=== PATIENT | female | born 1995 | race Hispanic/Latino ===

== ENCOUNTER 2024-06-05 19:05 | Emergency (ER) | payer SELFPAY ==
[~2024-06-05] VITALS: Ht 149.9 cm; Wt 77.1 kg
[2024-06-05] MEDS: dexaMETHasone SOD PHOSPHATE 4 MG/ML 1ML VIAL IM ONE (19:43)
[2024-06-05] MEDS: BUDESONIDE 0.5 MG/2 ML INH IH STA (19:47)
[2024-06-05 19:48] VITALS: PULSE 77; RESP 20
[2024-06-05] MEDS ORDERED: AZIT500T2 PO (20:33)
[2024-06-05] MEDS ORDERED: METH4TAB3 PO (20:33)
[2024-06-05] MEDS ORDERED: BUDE1AMP2 NEB (20:33)
[2024-06-05] MEDS ORDERED: BENZ-39 PO (20:33)
[2024-06-05 20:46] VITALS: BP 132/84; PULSE 72; RESP 20; TEMP 98.8; O2SAT 100
== END 2024-06-05 20:49 | disposition home or self-care (01) ==
LOC: EDH 19:05
DX: J06.9 Acute upper respiratory infection, unspecified (principal); B97.89 Other viral agents as the cause of diseases classified elsewhere; J45.909 Unspecified asthma, uncomplicated; Z20.822 Contact with and (suspected) exposure to COVID-19; Z79.51 Long term (current) use of inhaled steroids
CPT/HCPCS: 99284; 71045; 87426; 81025; 96372; 94640; J1100